=== PATIENT | male | born 1975 | race Caucasian/White ===

== ENCOUNTER 2018-10-09 11:28 | Emergency (ER) | payer OTHER ==
[~2018-10-09] VITALS: Ht 195.6 cm; Wt 93.0 kg
[2018-10-09] MEDS ORDERED: OMEPRAZOLE 20 M20 M1 PO (11:34)
[2018-10-09 13:20] VITALS: BP 122/79
== END 2018-10-09 13:21 | disposition home or self-care (01) ==
LOC: ER 11:28
DX: S61.412A Laceration without foreign body of left hand, initial encounter (principal); Z87.442 Personal history of urinary calculi; W26.8XXA Contact with other sharp object(s), not elsewhere classified, initial encounter; Y93.89 Activity, other specified; Y92.89 Other specified places as the place of occurrence of the external cause; Y99.0 Civilian activity done for income or pay